=== PATIENT | female | born 1985 | race Caucasian/White ===

== ENCOUNTER 2019-08-10 19:14 | Emergency (ER) | payer BC, SELFPAY ==
[2019-08-10 19:15] VITALS: BP 97/73; PULSE 84; RESP 14; TEMP 36.6; O2SAT 98; BMI 25.8
[2019-08-10 19:35] LABS: Urine Pregnancy, HCG Qual. Positive (Negative)
--- NOTE | 2019-08-10 19:35 | HMH.EDUROGF ---
ED Disposition Clinical Impression: Vaginal bleeding, Vaginal bleeding during Disposition: Home, Self-Care Condition on Discharge: Good Instructions: DI for Vaginal Bleeding Additional Instructions: Please follow-up with your SAW REPAIRER on Sunday for another serum quantitative. If symptoms progress or get worse please return to the emergency department. - Critical Care Critical Care Time: No Attestation: On , the high probability of a clinically significant, sudden or life threatening deterioration of the following system(s) required my full and direct attention, intervention and personal management. The time I documented below is in addition to time spent performing reported procedures but includes the following listed in this critical care notation. Medical Decision Making - Medical Records Medical records reviewed: Yes: I reviewed the patient's medical records. - Hemanth Inquiry Pt receiving controlled substance: No Vital Signs: 08/10/19 19:15 Temperature 97.9 F Temperature Source Oral Pulse Rate [Right Brachial] 84 Respiratory Rate 14 Blood Pressure [Right Arm] 97/73 L Blood Pressure Mean [Right Arm] 81 Blood Pressure Source [Right Arm] Automatic Cuff Blood Pressure Position [Right Arm] Sitting 02 Sat by Pulse Oximetry 98 Oxygen Delivery Method Room Air - Lab Data Lab results reviewed: Yes: I reviewed the patient's lab results. Lab Results 08/10/19 19:28: Urine HCG, Qual Positive Orders (Tests/Meds): ORDERS Category Date Time Status Type and Screen Stat BBK 08/10/19 19:26 Ordered Complete Blood Count Auto Diff Stat Lab 08/10/19 19:26 Ordered HCG,Quantitative Stat Lab 08/10/19 19:26 Ordered Medical Decision Narrative: If patient's Rh factor comes back negative she will get RhoGam here in the ED if H&H is stable she will be stable for discharge and follow-up with SAW REPAIRER on Sunday for another serum quant. Female Urogenital HPI - General Chief complaint: Vaginal Bleeding Stated complaint: 9 wks vaginal bleeding Time Seen by Provider: 08/10/19 19:30 Mode of Arrival: EMS Source of Information: Patient Limitations: No Limitations Description of Symptoms (Recalled from ER Triage Doc. by RN): Patient brought in by [facility]. Patient reports she is 9 wks and today while fishing with family for fathers day she started cramping and is now having some vaginal bleeding. 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 - History of Present Illness HPI Narrative: A pleasant 34-year-old female presents to the ED as a G6, P2 approximately 9 weeks gestation. Patient states that she is had some vaginal bleeding today she is gone through 2 pads in the last 12 hours. She does not complain of any abdominal cramping. She denies any other acute symptoms but patient did state that she has had 3 previous miscarriages. Patient is not from [facility] she lives in [facility]. She was over in [place] the other day and had a serum hCG done at that facility. Otherwise no other acute issues. : yes - Related Data Allergies Allergy/AdvReac Type Severity Reaction Status Date / Time No Known Allergies Allergy Verified 08/10/19 19:25 [facility] History - Hepatitis A Screen Drug use history?: No High risk sexual behaviors?: No History of sexually transmitted infection?: No Currently employed?: No Childcare worker?: No Do you have indoor plumbing?: Yes Do you have electricity?: Yes Attestation statement:: This patient has been screened for Hepatitis A risk factors. I have reviewed the patient's past medical history: Yes - Social History Smoking Status: Current every day smoker # Packs/Day (cigarettes): 1 Alcohol Intake: never Occupational Status: employed ROS Obtained: Yes All systems reviewed & no additional complaints - Constitutional Constitutional: Reports system reviewed and no additional complaint
--- NOTE | 2019-08-10 19:37 | PC.NURSE ---
lab at bedside
--- NOTE | 2019-08-10 20:01 | PC.NURSE ---
lab collected blood, rekha ibrahim
[2019-08-10 20:11] LABS: Basophils % 0.3 % (0.1-2.0); Eosinophils # 0.1 K/mm3 (0.0-0.4); Eosinophils % 1.2 % (0.1-12.0); Hematocrit 30.8 % (37.0-47.0); Lymphocytes # 2.1 K/mm3 (0.7-4.5); Lymphocytes % 23.6 % (10-50); Mean Corpuscular HGB Conc 35.8 g/dL (31.8-35.4); Mean Corpuscular Hemoglobin 29.3 pg (27.0-31.2); Mean Corpuscular Volume 81.7 fl (81-99); Mean Platelet Volume 7.6 fl (7.4-10.4); Monocytes # 0.5 K/mm3 (0.1-1.0); Monocytes % 5.9 % (1.7-9.3); Neutrophils # 6.2 K/mm3 (1.8-7.8); Platelet Count 379 K/mm3 (142-424); Red Blood Count 3.76 M/mm3 (4.20-5.40); Red Cell Distribution Width 12.9 % (11.5-17.5)
--- NOTE | 2019-08-10 20:33 | US_ITS ---
PROCEDURE: US OB TRANSVAGINAL CLINICAL INDICATION: 9 wks vaginal bleeding COMPARISON: No exams were available for comparison FINDINGS: An intrauterine gestational sac is present with a pole with a crown-rump length of 2.71cm correlating to gestational age of 9weeks 4days. heart tones are present with an FHR of 176bpm. Yolk sac is noted. There is a 11 millimeter x 11 millimeter subchorionic fluid collection noted. The uterus was not measured. LEFT OVARY: [id number] with a volume of 2.3ml. RIGHT OVARY: 2cmx [id number] with a volume of 4ml. Average ultrasound age 9weeks 4days. IMPRESSION: Estimated due date by Ultrasound is 03/10/2020 Viable IUP, implantation bleed Dictated by: Carlos Tolliver 08/11/2019 10:28 Electronically signed by Carlos Tolliver in [facility] 08/11/2019 10:28
[2019-08-10 20:48] VITALS: BP 90/62; PULSE 76; RESP 18; O2SAT 100
--- NOTE | 2019-08-10 20:52 | PC.NURSE ---
kaila contacted highway engineering technician and advised of need for US
[2019-08-10 21:06] LABS: HCG,Quantitative 100830 mIU/ml (0-5.42)
[2019-08-10 21:07] VITALS: BP 99/60; PULSE 71; RESP 18; O2SAT 98
[2019-08-10 22:28] VITALS: BP 124/75; PULSE 65; RESP 18; TEMP 36.8; O2SAT 98
== END 2019-08-10 22:32 | disposition home or self-care (01) ==
PROVIDERS: Emergency Provider Family Medicine
DX: O20.8 Other hemorrhage in early pregnancy (principal); Z3A.09 9 weeks gestation of pregnancy; F17.210 Nicotine dependence, cigarettes, uncomplicated
CPT/HCPCS: 36415; 76817; 76830; 81025; 84702; 85025; 86850; 96365; 99283